=== PATIENT | male | born 1965 | race Caucasian/White ===

== ENCOUNTER 2022-09-08 18:17 | Observation (INO) | payer MEDICAID, SELFPAY ==
[2022-09-08 18:18] VITALS: BP 119/78; PULSE 84; RESP 16; TEMP 36.7; O2SAT 95; BMI 25.9
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
--- NOTE | 2022-09-08 19:24 | EX.ED.SAOD ---
HPI History of Present Illness Chief Complaint: Substance Abuse Informant: patient Narrative Narrative: Patient presents for detox from cocaine and alcohol. He states he is never really used opiates. He does not use benzodiazepines. 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 Patient lost his job about a year ago. Since then he has been using alcohol and crack more. He states he smokes crack cocaine whenever he can get it. He states he drinks about 6 drinks or so a day. Today he had 3 beers this morning. He had 2 glasses of wine and then some heavy mixed drink that I did not recognize the name of. He states if he does not drink for about a day he starts getting shaky and that goes away when he drinks. He states right now he feels very anxious but he does not feel like he is withdrawing. He does not inject any drugs. He has donated plasma. Only medical complaint is that he had a cold about 10 days ago. He had some nasal congestion and mild cough but he said that is better now. He does not take routine medicines. He has no chronic medical conditions. People have suggested that he might have COPD but he does not use any inhalers. PFSH PFSH Medical History Cocaine abuse COPD (chronic obstructive pulmonary disease) ETOH abuse Smoker Home Medications NK 09/08/22 [History Last Taken Unknown] Allergy/AdvReac Type Severity Reaction Status Date / Time No Known Allergies Allergy Verified 09/08/22 18:19 Family History (Updated 09/08/22 @ 20:[address] Marky Travis MD) Other CVA (cerebral vascular accident) Cancer Heart disease Surgical History H/O skin graft Social History Smoking Status: Current every day smoker tobacco type: cigarettes ROS ROS ED Constitutional Constitutional ED: Denies chills or fever(s) Eyes Eyes: Denies change in vision ENT ENT ED: Denies rhinorrhea Cardiovascular Cardiovascular: Denies chest pain or palpitations Respiratory/Chest Respiratory/Chest: Denies dyspnea Gastrointestinal Gastrointestinal: Denies nausea or vomiting Musculoskeletal Musculoskeletal: Denies myalgias Integumentary Denies rash Neurologic Neurologic: Denies headache(s) Psychiatric Psychiatric: Reports anxiety; Denies suicidal ideation or suicidal thoughts Hematologic/Lymphatic Hematologic/Lymphatic: Denies lymphadenopathy Allergic/Immunologic Allergic/Immunologic ED: Denies urticaria EXAM Physical Exam Narrative Exam Narrative: Patient awake alert no acute distress. Carries on normal conversation. HEENT shows no trauma. Mucous membranes are moist Eyes show no icterus Neck is supple no JVD Lungs are clear. No pain with a deep breath. No wheezes rhonchi or rales. Heart is regular. I hear no murmur. Abdomen is soft and nontender. Extremities show no sign of swelling. No tenderness. No deformities. No asymmetry. Skin shows no rashes or diaphoresis. I do not see piloerection at this time. Neurologically he is awake alert and appropriate. He does seem to be a bit anxious. But no flight of ideas. No paranoia. No sign of hallucinations. Const Vital Signs: 09/08/22 18:18 Temperature 98.0 F Temperature Source Temporal Pulse Rate 84 Respiratory Rate 16 Blood Pressure 119/78 Blood Pressure Mean 91 Pulse Ox 95 Oxygen Delivery Method Room Air MDM MDM MDM Narrative Medical decision making narrative: CBC shows no acute process. Electrolytes show no marked abnormalities. Liver function test showed no acute process. Talk screen is positive for cocaine Alcohol level is 0. I discussed case with hospitalist. This patient does use cocaine which we normally do not do detox from. But he also uses alcohol. He states that if he does not drink he starts to get shaky and that is resolved with drinking. For this reason he will be brought in the hospital. Management Discussion w/another healthcare provider: Hospitalist Discharge Plan Dx/Rx/DC Orders Clinical Impression: Alcohol abuse, Desire for detoxification, Cocaine abuse Disposition Disposition: Acute Care Hospital [facility] Discharge Date/Time: 09/08/22 21:15
[2022-09-08 19:39] LABS: Absolute Lymphocyte Count 1.76 X10^3/uL (0.83-4.51); Absolute Neutrophil Count 4.1 X10^3/uL (2.0-7.7); Basophil# 0.07 X10^3/uL; Eosinophils% 1.4 % (0-5); Hematocrit 45.7 % (40-54); Hemoglobin 15.7 g/dL (13.0-16.5); Lymphocyte # 1.76 X10^3/ul (0.83-4.51); Lymphocyte % 25.2 % (19-41); Mean Corp Hgb Conc 34.4 g/dL (32-36); Mean Corpuscular Hgb 33.5 pg (27.0-32.0); Mean Corpuscular Volume 97.4 fL (80-94); Mean Platelet Vol. 9.4 fl (6.2-12.0); Monocyte# 0.92 X10^3/uL; Monocyte% 13.2 % (0-10); NRBC Flagged by Analyzer 0 % (0-5); Neutrophil % 58.8 % (47-70); Platelet Count 279 K/mm3 (150-450); RBC Distribution Width CV 13.1 % (11.6-14.6); RBC Distribution Width SD 46.5 fl (35.1-43.9); Red Blood Count 4.69 M/mm3 (4.6-6.2)
[2022-09-08 19:59] LABS: ALB/GLOB Ratio 0.8 RATIO (0.9-2.4); AST(SGOT) 44 U/L (15-37); Alanine Aminotransfer ALT/SGPT 30 U/L (16-61); Albumin, Serum 3.5 g/dL (3.2-5.0); Alkaline Phosphatase 115 U/L (45-117); Anion Gap 5 (5-15); BUN 15 mg/dL (7-18); BUN/Creat Ratio 15.7 RATIO (10-20); Calcium,Total 9.3 mg/dL (8.5-10.1); Chloride 105 mmol/L (98-107); Creatinine, Serum 0.96 mg/dL (0.70-1.30); EST Glomerular Filtration Rate 87 mL/min (>60); Est Glom Filt Rate - Afr Amer 105 mL/min (>60); Estimated Creatinine Clearance 98.26 ml/min; Globulin 4.2 g/dL (2.2-4.2); Glucose 100 mg/dL (74-106); Potassium 4.9 mmol/L (3.5-5.1); Protein, Total 7.7 g/dL (6.4-8.2); Sodium Level 136 mmol/L (136-145)
[2022-09-08 20:00] VITALS: BP 129/89; PULSE 87; RESP 16; O2SAT 99
[2022-09-08 20:05] LABS: Alcohol, Blood (Medical)-Serum < 3.0 mg/dL
[2022-09-08 20:24] LABS: Amphetamine Urine VISTA NEGATIVE (<1000 ng/mL); Barbiturate Urine VISTA NEGATIVE (< 200 ng/mL); Benzodiazepine Urine VISTA NEGATIVE (< 200 ng/mL); Cocaine Urine VISTA POSITIVE (< 300 ng/mL); Ecstacy Urine VISTA NEGATIVE (< 500 ng/mL); Methadone Urine VISTA NEGATIVE (< 300 ng/mL); PCP Urine VISTA NEGATIVE (< 25 ng/mL); THC Urine VISTA NEGATIVE (< 50 ng/mL); Vista UDS pH Range 4
[2022-09-08 20:30] VITALS: BP 127/82; PULSE 69; RESP 18; TEMP 37; O2SAT 98
[2022-09-08 21:21] VITALS: BMI 24.0
[2022-09-08 21:40] VITALS: BP 125/87; PULSE 67; RESP 18; TEMP 36.7; O2SAT 97
[2022-09-08] MEDS: Nicotine Polacrilex 2 MG GUM PO (21:46)
[2022-09-08] MEDS: Phenobarbital 32.4 MG Tablet 64.8 MG PO (21:46)
[2022-09-08] MEDS: traZODone 100 MG Tablet PO (21:46)
[2022-09-09] VITALS (7 sets, daily range): BP systolic 104–120; BP diastolic 70–79; PULSE 62–84; RESP 18–20; TEMP 36.5–37.1; O2SAT 95–99
[2022-09-09] MEDS: 0.9% Saline Lock 10 ML Syringe IV ×2 (02:18→22:16)
[2022-09-09] MEDS: Phenobarbital 32.4 MG Tablet 64.8 MG PO ×6 (02:18→22:14)
[2022-09-09] MEDS: Thiamine Hydrochloride 100 MG Tablet PO (06:38)
[2022-09-09] MEDS: Folic Acid 1 MG Tablet PO (06:38)
[2022-09-09] MEDS: Nicotine Polacrilex 2 MG GUM PO (08:25)
--- NOTE | 2022-09-09 11:04 | ADDICTION ---
This life underwriter met with PT to conduct ASAM, MSE, AUDIT, DUDIT assessments and to plan for d/c. PT A+Ox4 and participated actively. All assessments completed and placed in PT's chart. PT plans to f/u with [facility] for follow-up in patient treatment services on Monday. [facility] will transport to treatment.
--- NOTE | 2022-09-09 13:12 | NURSING ---
transportation is set up for Monday at 9am - the drivers name is Beatrice - which will call the floors number when she arrives
[2022-09-09] MEDS: Gabapentin 300 MG Capsule PO (14:57)
--- NOTE | 2022-09-09 19:48 | PCM.PN.HOSP ---
Reason for Visit Reason for Visit: Diagnoses Alcohol abuse, uncomplicated (09/08/22) Opioid abuse, uncomplicated (09/08/22) Other stimulant abuse, uncomplicated (09/08/22) Tobacco use (09/08/22) Subjective Subjective Patient was seen and examined today, he does not complain of any excessive nervousness or tremor, he states he wants a cigarette however. Patient is scheduled to go to an inpatient detox center on Monday. Objective Data Objective Data Vital Signs: Vital Signs Temp Pulse Resp BP Pulse Ox O2 Del Method 97.9 F 84 18 107/73 99 Room Air 09/09/22 18:14 09/09/22 18:14 09/09/22 18:14 09/09/22 18:14 09/09/22 18:14 09/09/22 18:14 Oxygen Delivery Method Room Air Weight: 82.8 kg Body Mass Index (BMI) 24.0 Intake & Output: Intake and Output for Last 24 Hours 09/07/22 09/08/22 09/09/22 23:59 23:59 23:59 Intake Total 400 / 400 Balance 400 / 400 Lab / Micro Data Result Diagrams: 09/08/22 19:31 09/08/22 19:31 Labs: Laboratory Results - last 24 hr 09/08/22 19:31: Sodium 136, Potassium 4.9, Chloride 105, Carbon Dioxide 26.0, Anion Gap 5, BUN 15, Creatinine 0.96, Estim Creat Clear Calc 98.26, Est GFR (MDRD) Af Amer 105, Est GFR (MDRD) Non-Af 87, BUN/Creatinine Ratio 15.7, Glucose 100, Calcium 9.3, Total Bilirubin 0.50, AST 44 H, ALT 30, Alkaline Phosphatase 115, Total Protein 7.7, Albumin 3.5, Globulin 4.2, Albumin/Globulin Ratio 0.8 L 09/08/22 19:31: Ethyl Alcohol < 3.0 09/08/22 20:04: Urine Opiates Screen NEGATIVE, Urine Methadone Screen NEGATIVE, Ur Barbiturates Screen NEGATIVE, Ur Phencyclidine Scrn NEGATIVE, Ur Amphetamines Screen NEGATIVE, MDMA (Ecstasy) Screen NEGATIVE, U Benzodiazepines Scrn NEGATIVE, Urine Cocaine Screen POSITIVE H, U Cannabinoids Screen NEGATIVE, Ur Drug Screen Comment Physical Exam Const alert, oriented x3, no apparent distress and healthy appearing General Appearance: cooperative, well kempt and well developed Orientation / Consciousness: awake, oriented to person, oriented to place and oriented to time HEENT normocephalic and moist oral mucous membranes Eyes PERRL, EOMs intact bilaterally and conjunctivae normal Neck supple, no JVD, thyroid normal and no carotid bruits General: trachea midline Resp normal respiratory effort and clear to auscultation bilaterally Auscultation: Negative for rales, rhonchi or wheezes Cardio regular rate, regular rhythm, no murmurs, no rub and no gallops GI normal to inspection, nondistended, normoactive bowel sounds, soft to palpation, non-tender and non-distended Extremity no clubbing, cyanosis or edema Skin no rashes or lesions noted General Skin Exam: no breakdown Neuro oriented x3, CN's II-XII intact bilaterally, no focal motor deficits and no sensory deficits noted Sensorium / Orientation: awake and alert Speech: speech normal Psych affect normal Assessment & Plan Assessment/Plan (1) Alcohol abuse: PLAN: Plan 1. Acute alcohol withdrawal-patient's medications will continue as ordered, patient has minimal signs and symptoms of withdrawal at this time, he will go into a inpatient detox program on Monday #2 cocaine abuse-complicates care, medical course, recovery, and prognosis Total clinical time spent by myself addressing patient's medical problems, reviewing all of his data, and collaborating with patient's care team: 25 minutes Charges/Coding Visit Charges Inpatient E&M: 85196 Subs Hosp L2
[2022-09-10] MEDS: Phenobarbital 32.4 MG Tablet 64.8 MG PO ×4 (03:04→13:30)
[2022-09-10 03:05] VITALS: BP 111/75; PULSE 70; RESP 20; TEMP 36.4; O2SAT 96
[2022-09-10 06:51] VITALS: BP 117/70; PULSE 66; RESP 20; TEMP 36.5; O2SAT 96
[2022-09-10] MEDS: Folic Acid 1 MG Tablet PO (08:07)
[2022-09-10] MEDS: Thiamine Hydrochloride 100 MG Tablet PO (08:07)
[2022-09-10 08:15] VITALS: BP 121/82; PULSE 73; RESP 18; TEMP 36.8; O2SAT 97
[2022-09-10 13:20] VITALS: O2SAT 95
[2022-09-10 14:10] VITALS: BP 118/72; PULSE 78; RESP 18; TEMP 37.2; O2SAT 97
--- NOTE | 2022-09-10 17:37 | PCM.PN.HOSP ---
Reason for Visit Reason for Visit: Diagnoses Alcohol abuse, uncomplicated (09/08/22) Opioid abuse, uncomplicated (09/08/22) Other stimulant abuse, uncomplicated (09/08/22) Tobacco use (09/08/22) Subjective Subjective Patient was seen and examined today, he has little symptoms of alcohol withdrawal at this time, he states he feels sleepy at times, I have offered to taper his phenobarb downward and he has agreed to try this. Objective Data Objective Data Vital Signs: Vital Signs Temp Pulse Resp BP Pulse Ox O2 Del Method 99 F 78 18 118/72 97 Room Air 09/10/22 14:10 09/10/22 14:10 09/10/22 14:10 09/10/22 14:10 09/10/22 14:10 09/10/22 14:10 Oxygen Delivery Method Room Air Weight: 82.8 kg Body Mass Index (BMI) 24.0 Intake & Output: Intake and Output for Last 24 Hours 09/08/22 09/09/22 09/10/22 23:59 23:59 23:59 Intake Total 400 / 400 Balance 400 / 400 Lab / Micro Data Result Diagrams: 09/08/22 19:31 09/08/22 19:31 Physical Exam Const alert, oriented x3, no apparent distress and healthy appearing General Appearance: cooperative, well kempt and well developed Orientation / Consciousness: awake, oriented to person, oriented to place and oriented to time HEENT normocephalic and moist oral mucous membranes Eyes PERRL, EOMs intact bilaterally and conjunctivae normal Neck supple, no JVD, thyroid normal and no carotid bruits General: trachea midline Resp normal respiratory effort and clear to auscultation bilaterally Auscultation: Negative for rales, rhonchi or wheezes Cardio regular rate, regular rhythm, no murmurs, no rub and no gallops GI normal to inspection, nondistended, normoactive bowel sounds, soft to palpation, non-tender and non-distended Extremity no clubbing, cyanosis or edema Skin no rashes or lesions noted General Skin Exam: no breakdown Neuro oriented x3, CN's II-XII intact bilaterally, no focal motor deficits and no sensory deficits noted Sensorium / Orientation: awake and alert Speech: speech normal Psych affect normal Assessment & Plan Assessment/Plan (1) Desire for detoxification: (2) Alcohol abuse: PLAN: Plan 1. Acute alcohol withdrawal-patient's phenobarbital be tapered slightly, patient has minimal signs and symptoms of withdrawal at this time, he will go into a inpatient detox program on Monday #2 cocaine abuse-complicates care, medical course, recovery, and prognosis #3 chronic alcoholism-complicates care, medical course, recovery, and prognosis, continue present medications Total clinical time spent by myself addressing patient's medical problems, reviewing all of his data, and collaborating with patient's care team: 25 minutes Charges/Coding Visit Charges Inpatient E&M: 69838 Subs Hosp L2
[2022-09-10 21:23] VITALS: BP 100/73; PULSE 78; RESP 17; TEMP 36.6; O2SAT 99
[2022-09-10] MEDS: traZODone 100 MG Tablet PO (21:23)
[2022-09-10] MEDS: Phenobarbital 32.4 MG Tablet PO (21:23)
[2022-09-11 03:01] VITALS: BP 110/69; PULSE 68; RESP 16; TEMP 36.6; O2SAT 95
[2022-09-11 06:30] VITALS: BP 106/75; PULSE 71; RESP 18; TEMP 36.6; O2SAT 98
[2022-09-11] MEDS: Phenobarbital 32.4 MG Tablet PO ×3 (06:34→21:31)
[2022-09-11] MEDS: Gabapentin 300 MG Capsule PO ×2 (08:18→21:54)
[2022-09-11] MEDS: Folic Acid 1 MG Tablet PO (08:18)
[2022-09-11] MEDS: Thiamine Hydrochloride 100 MG Tablet PO (08:18)
[2022-09-11 08:30] VITALS: BP 119/79; PULSE 84; RESP 18; TEMP 36.6; O2SAT 97
[2022-09-11] MEDS: hydrOXYzine PAM 25 MG Capsule 50 MG PO (13:51)
[2022-09-11 14:30] VITALS: BP 113/72; PULSE 81; RESP 18; TEMP 36.6; O2SAT 96
[2022-09-11 14:33] VITALS: O2SAT 95
--- NOTE | 2022-09-11 18:36 | PCM.PN.HOSP ---
Reason for Visit Reason for Visit: Diagnoses Alcohol abuse, uncomplicated (09/08/22) Opioid abuse, uncomplicated (09/08/22) Other stimulant abuse, uncomplicated (09/08/22) Tobacco use (09/08/22) Subjective Subjective Was seen and examined today, he denies any tremor or nervousness, he is due to go to an inpatient detox center tomorrow for detox services. Objective Data Objective Data Vital Signs: Vital Signs Temp Pulse Resp BP Pulse Ox O2 Del Method 97.9 F 81 18 113/72 95 Room Air 09/11/22 14:30 09/11/22 14:30 09/11/22 14:30 09/11/22 14:30 09/11/22 14:33 09/11/22 14:33 Oxygen Delivery Method Room Air Weight: 82.8 kg Body Mass Index (BMI) 24.0 Intake & Output: Intake and Output for Last 24 Hours 09/09/22 09/10/22 09/11/22 23:59 23:59 23:59 Intake Total 400 / 400 120 / 120 120 / 120 Balance 400 / 400 120 / 120 120 / 120 Lab / Micro Data Result Diagrams: 09/08/22 19:31 09/08/22 19:31 Physical Exam Const alert, oriented x3, no apparent distress and healthy appearing General Appearance: cooperative, well kempt and well developed Orientation / Consciousness: awake, oriented to person, oriented to place and oriented to time HEENT normocephalic and moist oral mucous membranes Eyes PERRL, EOMs intact bilaterally and conjunctivae normal Neck supple, no JVD, thyroid normal and no carotid bruits General: trachea midline Resp normal respiratory effort and clear to auscultation bilaterally Auscultation: Negative for rales, rhonchi or wheezes Cardio regular rate, regular rhythm, no murmurs, no rub and no gallops GI normal to inspection, nondistended, normoactive bowel sounds, soft to palpation, non-tender and non-distended Extremity no clubbing, cyanosis or edema Skin no rashes or lesions noted General Skin Exam: no breakdown Neuro oriented x3, CN's II-XII intact bilaterally, no focal motor deficits and no sensory deficits noted Sensorium / Orientation: awake and alert Speech: speech normal Psych affect normal Assessment & Plan Assessment/Plan (1) Desire for detoxification: (2) Alcohol abuse: PLAN: Plan 1. Acute alcohol withdrawal-patient's phenobarbital be tapered slightly today, patient has minimal signs and symptoms of withdrawal at this time, he will go into a inpatient detox program tomorrow. #2 cocaine abuse-complicates care, medical course, recovery, and prognosis #3 chronic alcoholism-complicates care, medical course, recovery, and prognosis, continue present medications Total clinical time spent by myself addressing patient's medical problems, reviewing all of his data, and collaborating with patient's care team: 25 minutes Charges/Coding Visit Charges Inpatient E&M: 57618 Subs Hosp L1
[2022-09-11 21:50] VITALS: BP 109/79; PULSE 78; RESP 16; TEMP 36.8; O2SAT 98
[2022-09-11] MEDS: traZODone 100 MG Tablet PO (21:54)
[2022-09-12 05:57] VITALS: BP 111/75; PULSE 68; RESP 16; TEMP 36.6; O2SAT 98
[2022-09-12 08:01] VITALS: BP 116/79; PULSE 84; RESP 16; TEMP 36.6; O2SAT 97
[2022-09-12] MEDS: Thiamine Hydrochloride 100 MG Tablet PO (08:03)
[2022-09-12] MEDS: Folic Acid 1 MG Tablet PO (08:03)
--- NOTE | 2022-09-12 08:16 | DCINST_ITS ---
Discharge Instructions Diet Discharge Diet: Low fat / Low cholesterol Activity Discharge Activity: Return to Normal Activity Weight Bearing Status: Weight bearing as tolerated Dressing / Incision Call your doctor if you observe: Fever of 101 or Higher, Shortness of breath, Dizziness, Swelling in the ankles, Chest pain and Increased palpitations (irregular heartbeat) Follow Up Care Test Results: Test results from this visit will be discussed in further detail at your follow- up appointment, if applicable. Discharge Plan Admission Admit Date/Time: 09/08/22 19:17 Primary Reason for Your Visit: ACUTE ALCOHOL WITHDRAWAL Attending Provider: Chanel Long Primary Care Provider: Care Physician,No Primary Consulting Providers: Marky Travis ; Jake Grande Discharge Orders/Prescriptions Prescriptions: No Action NK Referrals / Follow Up: Care Physician,No Primary [Primary Care Provider] - Disposition Disposition (needs filled in before D/C Order can be placed): Home, Self Care
--- NOTE | 2022-09-12 08:16 | PCM.DC.SUM ---
Providers Date of Admission: 09/08/22 Date of Discharge: 09/12/22 Primary Care Physician: No Primary Care Phys Reason For Visit: DETOX Diagnosis Discharge Diagnosis (1) Desire for detoxification: Status: Acute (2) Alcohol abuse: Status: Acute Code(s): F10.10 - Alcohol abuse, uncomplicated Medications at Discharge Home Medications NK 09/08/22 Hospital Course Operations None Procedures None Summary of Care Provided Minutes Spent on Discharge: 55 Hospital Course: Patient is a 56-year-old male with a past medical history as outlined which includes chronic alcohol and polysubstance abuse. He was admitted through the ED on 09/08/2022 for acute alcohol withdrawal. Patient said he had been drinking since about the age of 12 usually drank about 3 to 424 ounce cans of beer daily and also sometimes drank 1/5 of a half of whiskey. His last drink was the morning of the day of presentation. 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 He also admitted to a history of crack cocaine use and said he started snorting cocaine from around age 16 years. He also occasionally used fentanyl. He was admitted and managed for acute alcohol and opioid withdrawal. He was started on alcohol withdrawal protocol with phenobarbital and opioid withdrawal protocol with buprenorphine. He tolerated the detox process and felt better. Patient was initially agreeable to going to an inpatient drug rehab facility. However on 09/12/2022, after being informed that transport had been set up to go to the drug rehab facility, patient changes mind and said he wanted to go home rather. Despite counseling he insisted on going home. He was therefore discharged on 09/12/2022 and is follow-up with his primary care doctor within 1 to 2 weeks. #Patient seen and examined prior to discharge. Had no complaints and had an uneventful night. Review of systems otherwise negative. Labs and vitals reviewed. Home medication reviewed and reconciled. Physical Exam Const alert, oriented x3 and no apparent distress General Appearance: cooperative and comfortable Orientation / Consciousness: awake Exam Limitations: no limitations HEENT normocephalic, head/scalp atraumatic, hearing grossly normal bilaterally and moist oral mucous membranes Mouth: oral and palatal mucosa normal Eyes PERRL, EOMs intact bilaterally and conjunctivae normal Neck no lymphadenopathy and supple Resp normal respiratory effort, no retractions, no use of accessory muscles and clear to auscultation bilaterally Cardio regular rate, regular rhythm, S1 normal heart sound, S2 normal heart sound and no murmurs GI normal to inspection, nondistended, normoactive bowel sounds, soft to palpation, non-tender and non-distended Extremity normal to inspection, full ROM and no clubbing, cyanosis or edema Skin no rashes or lesions noted, no wounds, skin turgor normal and no jaundice Neuro oriented x3, CN's II-XII intact bilaterally, moves all extremities and no focal motor deficits Sensorium / Orientation: awake and alert Motor Exam: strength 5/5 throughout Psych affect normal Weight / BMI Weight Weight: 182 lb 8.684 oz Body Mass Index (BMI) 24.0 ABG / Lab / Microbiology Data Result Diagrams: 09/08/22 19:31 09/08/22 19:31 D/C Instructions Discharge Diet: Low fat / Low cholesterol Discharge Activity: Return to Normal Activity Weight Bearing Status: Weight bearing as tolerated Call your doctor if you observe: Fever of 101 or Higher, Shortness of breath, Dizziness, Swelling in the ankles, Chest pain and Increased palpitations (irregular heartbeat) Meaningful Use Info Meaningful Use Diagnoses (Choose all that apply): None applicable Discharge Plan Admission Admit Date/Time: 09/08/22 19:17 Primary Reason for Your Visit: ACUTE ALCOHOL WITHDRAWAL Attending Provider: Chanel Long Primary Care Provider: Care Physician,No Primary Consulting Providers: Marky Travis ; Jake Grande Discharge Orders/Prescriptions Prescriptions: No Action NK Referrals / Follow Up: Care Physician,No Primary [Primary Care Provider] - Disposition Disposition (needs filled in before D/C Order can be placed): Home, Self Care Charges/Coding Visit Charges Inpatient E&M: 91585 Disch Hosp >30min
== END 2022-09-12 08:44 | disposition home or self-care (01) | DRG 773 ==
LOC: ED 19:29 → MS3 09-09 08:42
PROVIDERS: Admitting Provider Hospitalist; Emergency Provider Emergency Medicine; Visit Provider Student in an Organized Health Care Education/Training Program
DX: F10.230 Alcohol dependence with withdrawal, uncomplicated (principal); J44.9 Chronic obstructive pulmonary disease, unspecified; F11.13 Opioid abuse with withdrawal; F14.19 Cocaine abuse with unspecified cocaine-induced disorder; F15.10 Other stimulant abuse, uncomplicated; F17.210 Nicotine dependence, cigarettes, uncomplicated; Y90.0 Blood alcohol level of less than 20 mg/100 ml; Z56.89 Other problems related to employment; Z63.4 Disappearance and death of family member
CPT/HCPCS: 80053; 80307; 82077; 85025; 99221; 99284; 99406; A4216; G0378